=== PATIENT | female | born 1970 | race Caucasian/White ===

== ENCOUNTER 2019-01-14 20:08 | Emergency (ER) | payer BC ==
[2019-01-14] MEDS ORDERED: Methocarbamol TAB* 500 MG PO ONE (20:42)
[2019-01-14] MEDS ORDERED: Lidocaine PATCH 5%* 1 PATCH TRANSDERM ONE (20:42)
[2019-01-14] MEDS ORDERED: Dexamethasone IV* 4 MG/ML 1 ML (4 MG) IM ONE (20:42)
--- NOTE | 2019-01-14 20:49 | ED ---
Back Pain - HPI Summary HPI Summary: 48-year-old female presents with back pain for the past month. States that 2 days ago she started to develop severe pain into her left leg. pain starts in her buttock and radiates down left leg. States is better with ambulation. She denies any new injury. She is being seen a chiropractor for her back pain and it has been improving. no new injury. She admits to some tingling into her left leg. No numbness. No urinary symptoms. No loss of bowel or bladder. No saddle anesthesia. No fevers. Has no medical conditions. Has been taking ibuprofen for pain. - History of Current Complaint Chief Complaint: EDBackInjuryPain Stated Complaint: PAIN IN LEG PER PT Time Seen by Provider: 01/14/19 20:27 Pain Intensity: 8 - Allergies/Home Medications Allergies/Adverse Reactions: Allergies Allergy/AdvReac Type Severity Reaction Status Date / Time MS Penicillins [PCN] Allergy Hives Verified 11/29/13 00:33 PMH/Surg Hx/FS Hx/Imm Hx Endocrine/Hematology History: Reports: Hx Diabetes Respiratory History: Denies: Hx Asthma Infectious Disease History: No Infectious Disease History: Denies: Traveled Outside the [place] in Last 30 Days - Family History Known Family History: Positive: Non-Contributory - Social History Alcohol Use: Occasionally Substance Use Type: Reports: None Smoking Status (MU): Current Every Day Smoker Review of Systems Negative: Fever Negative: Chest Pain Negative: Shortness Of Breath Positive: Myalgia - back pain, left leg pain All Other Systems Reviewed And Are Negative: Yes Physical Exam Triage Information Reviewed: Yes Vital Signs On Initial Exam: Initial Vitals Temp Pulse Resp BP Pulse Ox 99 F 115 18 191/109 99 01/14/19 20:10 01/14/19 20:10 01/14/19 20:10 01/14/19 20:10 01/14/19 20:10 Vital Signs Reviewed: Yes Appearance: Positive: Well-Appearing Skin: Positive: Warm, Dry Head/Face: Positive: Normal Head/Face Inspection Eyes: Positive: Normal, Conjunctiva Clear ENT: Positive: Pharynx normal Respiratory/Lung Sounds: Positive: Clear to Auscultation, Breath Sounds Present Cardiovascular: Positive: Normal, RRR Abdomen Description: Positive: Nontender, Soft Bowel Sounds: Positive: Present Musculoskeletal: Positive: Strength/ROM Intact - back, Other - pos SLR left, good pulses, tenderness SI joint left, sensation grossly intact, Neurological: Positive: Normal, Reflexes Intact - patella, Normal Gait Psychiatric: Positive: Normal Diagnostics - Vital Signs Vital Signs Temp Pulse Resp BP Pulse Ox 01/14/19 20:10 99 F 115 18 191/109 99 - Laboratory Lab Statement: Any lab studies that have been ordered have been reviewed, and results considered in the medical decision making process. - Radiology back Radiology Interpretation Completed By: ED Physician Summary of Radiographic Findings: no fracture Re-Evaluation - Re-Evaluation First Eval Re-Evaluation Time: 21:33 Change: Improved Comment: feeling better Back Pain Course/Dx - Course Course Of Treatment: 48-year-old female presents with back pain for the past month. States that 2 days ago she started to develop severe pain into her left leg. pain starts in her buttock and radiates down left leg. States is better with ambulation. She denies any new injury. She is being seen a chiropractor for her back pain and it has been improving. no new injury. She admits to some tingling into her left leg. No numbness. No urinary symptoms. No loss of bowel or bladder. No saddle anesthesia. No fevers. Has no medical conditions. Has been taking ibuprofen for pain. on exam tenderness over left SI joint. Positive straight leg raise left. X-ray shows no acute findings. feeling better after steriod and pain medication. will prescribe steriod and muscle relaxer. told est care with primary and follow up with PT. patient understand and agrees with plan. - Diagnoses Differential Diagnosis/HQI/PQRI: Positive: Herniated Disc, Strain, Sprain Provider Diagnoses: Sciatic leg pain, Back pain Discharge - Sign-Out/Discharge Documenting (check all that apply): Patient Departure Patient Received Moderate/Deep Sedation with Procedure: No - Discharge Plan Condition: Good Disposition: HOME Prescriptions: Methocarbamol TAB* [Robaxin 500 MG TAB*] 500 mg PO TID PRN #15 tab PRN Reason: Pain methylPREDNISolone [Medrol Dosepak 4 MG*] 4 mg PO .SEE LORE INSTRUCTION #1 packet Patient Education Materials: Back Pain (ED) Referrals: [facility] [place] Physical therapy,PT [Medical Doctor] - [facility] [place] PHYSICIAN REFERRAL [Outside] Additional Instructions: Follow directions on package for Medrol pack Take muscle relaxers three times a day Use ibuprofen or Tylenol for pain every 6 hours ice/heat area, move as much as possible establish care with primary follow up with PT Return to ED if develop any new or worsening symptoms - Billing Disposition and Condition Condition: GOOD Disposition: Home
[2019-01-14] MEDS ORDERED: oxyCODONE/Acetamin 5/325 MG* TAB PO ONE (21:31)
[2019-01-14 21:46] VITALS: BP 145/89
[2019-01-15] MEDS ORDERED: Lidocaine Patch REMOVE* 1 NOTE MISC PATCH OFF ONE (09:00)
== END 2019-01-14 21:45 | disposition home or self-care (01) ==
LOC: ED 20:08
DX: M54.32 Sciatica, left side (principal); M54.9 Dorsalgia, unspecified; E11.9 Type 2 diabetes mellitus without complications; Z88.0 Allergy status to penicillin; F17.210 Nicotine dependence, cigarettes, uncomplicated
CPT/HCPCS: 72110; 96372; 99282; A9270-GY; J1100